=== PATIENT | male | born 1975 | race Caucasian/White ===

== ENCOUNTER → 2019-06-20 | Outpatient (CLI) | payer OTHER ==
--- NOTE | 2019-06-20 18:56 | PN ---
PROGRESS NOTE This is a 43-year-old male patient with severe obstructive sleep apnea coming in for a compliancy check. I diagnosed the patient with severe BENTLEY a few months back, and the patient had a home sleep study showing an AHI of 34.5, worse in the supine body position. The patient was given CPAP, which is currently set at a pressure of 8 cm. On today's evaluation, the patient reports marked improvement. He feels great. No major hypersomnia or sleepiness during the day. Initially he was given an AirFit N20 nose mask, and subsequently he was switched to a Langford FX. On today's compliance data, the patient is utilizing his machine at an average of 6.4 hours per night. His AHI is down to 0.2. He is using his CPAP every night. His compliance for more than 4 hours is 100%. Leak is at 2 L/minute. No nasal congestion. No nasal stuffiness. No sinus infections. No morning headaches; this is something that has completely recovered. His weight is stable. He is in the process of trying to lose weight. He has no complaints and his hypersomnia has improved markedly. REVIEW OF SYSTEMS: Fourteen-point review of systems was done. Positive findings are all mentioned above in the history of present illness. PHYSICAL EXAMINATION: VITAL SIGNS: BP is 153/88, pulse 99, respirations 16, temperature 97.0, saturation 96% on room air. Weight is 290. GENERAL APPEARANCE: Calm, comfortable. HEAD: Atraumatic, normocephalic. NECK: Supple. There is no JVD. No goiter or neck masses. Mallampati class IV. LUNGS: Clear to auscultation. HEART: Heart sounds are regular rate and rhythm. Normal S1, S2. No S3, S4. No murmurs. ABDOMEN: Soft, nontender. No organomegaly. EXTREMITIES: No edema. No cyanosis or clubbing. NEUROLOGIC: Alert and oriented x3. No focal neurological deficits. PSYCHIATRIC: Negative for anxiety or depression. IMPRESSION: 1. Severe obstructive sleep apnea with apnea/hypopnea index of 34.5, currently on CPAP pressure of 8 cm of water with excellent clinical response and compliance. 2. Hypersomnia, improved. 3. Obesity with a current body mass index of 39.7. 4. Intermittent bronchial asthma, currently inactive and stable. 5. Hypertension. PLAN: 1. Continue CPAP therapy at the same level of pressure. 2. Continue Langford FX mask, and alternatively a Nuance mask was offered to the patient. 3. Encourage weight loss. 4. Implement good sleep hygiene measures. 5. Will continue to follow. The patient will see me back in a year's time, earlier if needed. VIKKI / DAVID: [id number] /